=== PATIENT | female | born 2005 | race Caucasian/White ===

== ENCOUNTER 2023-05-26 06:58 | Outpatient (CLI) | payer BC, SELFPAY ==
--- NOTE | 2023-05-26 08:23 | W.ANESCHARGE ---
Anesthesia Charges Start Date/Time Anesthesia Start Date: 05/26/23 Anesthesia Start Time: 08:07 Stop Date/Time Anesthesia Stop Date: 05/26/23 Anesthesia Stop Time: 08:20
--- NOTE | 2023-05-26 10:11 | W.ANESCHARGE ---
Anesthesia Charges Start Date/Time Anesthesia Start Date: 05/26/23 Anesthesia Start Time: 08:07 Stop Date/Time Anesthesia Stop Date: 05/26/23 Anesthesia Stop Time: 08:20
== END 2023-05-26 06:59 | disposition home or self-care (01) ==
LOC: OP CLINIC 07:01
PROVIDERS: PCP Pediatrics; Visit Provider Internal Medicine
DX: R10.13 Epigastric pain (principal); R12 Heartburn
CPT/HCPCS: 00731; 43239; 88305; 88342; J2704